=== PATIENT | female | born 1965 | race Caucasian/White ===

== ENCOUNTER → 2021-10-29 | Outpatient (CLI) | payer OTHER ==
[2021-10-29 18:17] LABS: African American GFR (CKD) 105.4 (60.0-200.0); Albumin 3.7 g/dL (3.8-4.9); Albumin/Globulin Ratio 1.23 (1.60-3.17); Anion Gap 10.6 mmol/L (10.00-18.00); BUN/Creat Ratio 18.19 Ratio (12.00-20.00); Blood Urea Nitrogen 13.5 mg/dL (9.0-27.0); Calcium 8.7 mg/dL (8.7-10.3); Carbon Dioxide 23.3 mmol/L (20.0-27.5); Non-African American GFR(CKD) 90.9 (60.0-200.0); Potassium 3.8 mmol/L (3.5-5.5); Total Bilirubin 0.8 mg/dL (0.30-1.20); Total Protein 6.7 g/dL (6.2-8.2)
[2021-10-29 18:33] LABS: Basophils # (A) 0.06 X 10*3/uL (0.00-0.10); Basophils % (A) 0.7 %; Eosinophils # (A) 0.18 X 10*3/uL (0.04-0.35); Eosinophils % (A) 2.1 %; HCT 48.9 % (37.2-46.3); HGB 15.1 g/dL (12.0-15.0); Immature Grans, Automated 0.2 %; Lymphocytes # (A) 1.84 X 10*3/uL (0.90-5.00); Lymphocytes % (A) 21.9 %; MCH 29.6 pg (27.0-32.0); MCHC 30.9 g/dL (32.0-37.0); MCV 95.9 fL (80.0-97.0); Mean Platelet Volume 12.9 fL (9.5-12.2); Monocytes # (A) 0.46 X 10*3/uL (0.20-1.00); Monocytes % (A) 5.5 %; NRBC Per 100 WBC 0 /100 WBCS (0.0-0.0); Neutrophils # (A) 5.83 X 10*3/uL (1.80-7.70); Neutrophils % (A) 69.6 %; Platelet Count 134 X 10*3/uL (140-440); RDW 15.7 % (11.5-14.5); WBC 8.39 X 10*3/uL (4.50-10.00)
[2021-10-29 21:07] LABS: Appearance,Urine Clear (Clear); Bilirubin,Urine Negative (Negative); Blood,Urine Negative (Negative); Color,Urine Yellow (Yellow); Ketones,Urine Negative (Negative); Nitrite,Urine Negative (Negative); PH, Urine 7.5 (5.0-8.0); Specific Gravity,Urine 1.007 (1.001-1.030); Urobilinogen,Urine 0.2 (0.2,1.0)
== END | disposition home or self-care (01) ==
LOC: LABPAT 10:56
PROVIDERS: ATTEND Urology
DX: Z01.812 Encounter for preprocedural laboratory examination (principal)
CPT/HCPCS: 80053; 81003; 85025; 87086

== ENCOUNTER 2021-11-05 06:36 | Observation (INO) | payer OTHER ==
[2021-11-03 18:12] VITALS: BMI 42.9
[~2021-11-05 06:36] MED LIST: DEXAMETHASONE SOD PHOSPHATE 4 MG/ML 1 ML VIAL IV ONE; GENTAMICIN 120 MG in SODIUM CHLORIDE 0.9% 100 ML IVPB PRN; MIDAZOLAM 2 MG/2 ML VIAL IV PRN; ONDANSETRON 4 MG/2 ML VIAL IVP ONE; Pre Op ABX Message 1 EACH MISC MISCELLANE ONE
[2021-11-05] MEDS ORDERED: HYDROmorphone 0.5 MG/0.5 ML SYRINGE IVP PRN (07:00)
--- NOTE | 2021-11-05 07:09 | P.GSHP ---
History of Present Illness H&P Date: 11/04/21 56 yo female with documented murray on p/e, uds. Her lpp are > 100cm but her valsalva pressures are very high and would overcome a tot therefore she iwll get a pvs with lynx. The alternatives have been discussed. The risks including infection, bleeding, pain , dyspareunia, mesh erosion and infection have discussed understood and accepted. - Constitutional Constitutional: Denies chills, Denies fever - EENT Eyes: denies blurred vision, denies pain Ears, nose, mouth and throat: Denies headache, Denies sore throat - Cardiovascular Cardiovascular: Denies chest pain, Denies shortness of breath - Respiratory Respiratory: Denies cough, Denies 7 - Gastrointestinal Gastrointestinal: Denies abdominal pain, Denies diarrhea, Denies nausea, Denies vomiting - Genitourinary (Female) Genitourinary: Denies dysuria, Denies hematuria - Genitourinary (Male) Genitourinary: Denies dysuria, Denies hematuria - Musculoskeletal Musculoskeletal: Denies myalgias - Integumentary Integumentary: Denies pruritus, Denies rash - Neurological Neurological: Denies numbness, Denies weakness - Psychiatric Psychiatric: Denies anxiety, Denies depression - Endocrine Endocrine: Denies fatigue, Denies weight change Past Medical History Past Medical History: Cancer, COPD, Deep Vein Thrombosis (DVT), Hyperlipidemia, Hypertension, Osteoarthritis (OA), Sleep Apnea/CPAP/BIPAP, Vascular Disorder Additional Past Medical History / Comment(s): EMPHYSEMA, C-PAP MACHINE, PAST HX IBS/COLITIS., DDD WITH HERNIATED & BULDGING DISCS, HIP AND BACK PAIN, SKIN CANCER., BORDERLINE DIABETES, PT STATES LOW PLATELETS., STRESS INCONTINENCE., LONE PINE RIGHT EAR., HX DVT RIGHT LEG., STENT LEFT LEG. History of Any Multi-Drug Resistant Organisms: None Reported Past Surgical History: Section, Heart Catheterization, Tubal Ligation Additional Past Surgical History / Comment(s): HEMORRHOIDS, TOENAILSURGERY, SKIN CANCER, STENT LEFT LEG BEHIND KNEE , LAPARSCOPIC SURGERY, PLATE LEFT WRIST, RIGHT EAR SURGERY . Past Anesthesia/Blood Transfusion Reactions: No Reported Reaction Additional Past Anesthesia/Blood Transfusion Reaction / Comment(s): MOM HAD DIFFICULTY WAKING POST-OP Past Psychological History: Anxiety, Depression Smoking Status: Current every day smoker Past Alcohol Use History: Rare Additional Past Alcohol Use History / Comment(s): SMOKES 1/2- 1 PPD, STARTED SMOKING AGE 15. Past Drug Use History: None Reported - Past Family History Father Family Medical History: Deep Vein Thrombosis (DVT) Medications and Allergies Home Medications Medication Instructions Recorded Confirmed Type Albuterol Inhaler [Ventolin Hfa 1 puff INHALATION DIRECTED PRN 11/03/21 11/03/21 History Inhaler] Aspirin [Adult Low Dose Aspirin EC] 81 mg PO DAILY 11/03/21 11/03/21 History Atorvastatin [Lipitor] 40 mg PO DAILY 11/03/21 11/03/21 History Cyclobenzaprine [Flexeril] 10 mg PO HS PRN 11/03/21 11/03/21 History DULoxetine HCL [Cymbalta] 60 mg PO DAILY 11/03/21 11/03/21 History Pramipexole [Mirapex] 0.125 mg PO TID 11/03/21 11/03/21 History Pregabalin [Lyrica] 50 mg PO TID 11/03/21 11/03/21 History Tiotropium Br/Olodaterol HCl 2 spray INHALATION DAILY 11/03/21 11/03/21 History [Stiolto Respimat Inhal [place]] hydroCHLOROthiazide 25 mg PO DAILY 11/03/21 11/03/21 History lisinopriL 2.5 mg PO DAILY 11/03/21 11/03/21 History metFORMIN HCL 500 mg PO BID 11/03/21 11/03/21 History Allergies Allergy/AdvReac Type Severity Reaction Status Date / Time Penicillins Allergy Severe HIVES, Verified 11/03/21 17:53 SWELLING WITH TOUCHING PILL bee venom protein (honey bee) Allergy Unknown HIVES, Verified 11/03/21 17:18 ITCHING SWELLING dicyclomine [From Bentyl] Allergy Unknown FACE Verified 11/03/21 17:19 SWELLING, HOSPITALIZED. latex Allergy Unknown HIVES, Verified 11/03/21 17:19 SWELLING bacitracin Allergy SKIN Verified 11/03/21 17:19 PE[address] AW[address] lidocaine Allergy COUGH, Verified 11/03/21 17:18 RASH, POOR HEALING AFTER SURGERY Surgical - Exam - General well developed, well nourished, no distress - Eyes PERRL - ENT no hearing loss - Neck no masses - Respiratory normal expansion, normal respiratory effort - Cardiovascular Rhythm: regular - Abdomen Abdomen: soft, non tender - Genitourinary mobile urethra, murray, grade 2 rectocele - Integumentary no rash, no growths - Neurologic normal coordination, normal sensation - Musculoskeletal normal gait, normal posture - Psychiatric oriented to time, oriented to person, oriented to place, speech is normal, memory intact Assessment and Plan Assessment: Impression: MURRAY Plan; PVS with cystoscopy
[2021-11-05 07:20] LABS: Glucose,Whole Blood 107 mg/dL (75-99)
[2021-11-05] MEDS ORDERED: LACTATED RINGERS 1,000 ML IV ONE (07:21)
[2021-11-05] MEDS ORDERED: PROPOFOL 10 MG/ML 20 ML VIAL IV ONE (07:29)
[2021-11-05] MEDS ORDERED: GLYCOPYRROLATE 0.2 MG/ML 2 ML VIAL ONE (07:29)
[2021-11-05] MEDS ORDERED: ALBUTEROL HFA INHALER INHALATION ONE (07:29)
[2021-11-05] MEDS ORDERED: SUCCINYLCHOLINE CHLORIDE VIAL 200 MG/10 ML VIAL IV ONE (07:29)
[2021-11-05] MEDS ORDERED: ROCURONIUM 10 MG/ML (5 ML VIAL) IV ONE (07:29)
[2021-11-05] MEDS ORDERED: fentaNYL (PF) 50 MCG/ML 2 ML AMP ONE (07:29)
[2021-11-05] MEDS ORDERED: MIDAZOLAM 2 MG/2 ML VIAL ONE (07:29)
[2021-11-05] MEDS ORDERED: NEOSTIGMINE 1 MG/ML 10 ML VIAL ONE (07:29)
[2021-11-05] MEDS ORDERED: HYDROmorphone (PF) 1 MG/ML ONE (07:29)
[2021-11-05] MEDS ORDERED: VASOPRESSIN 20 UNIT/ML 1 ML VIAL SQ ONE (08:06)
[2021-11-05] MEDS ORDERED: ALBUTEROL HFA INHALER INHALATION PRN (08:34)
[2021-11-05] MEDS ORDERED: HYDROcodone/APAP 5-325MG 1 EACH TAB PO PRN (08:37)
[2021-11-05] MEDS ORDERED: ONDANSETRON 4 MG/2 ML VIAL IVP PRN (08:37)
--- NOTE | 2021-11-05 08:42 | P.OP ---
Date of Procedure: 11/05/21 Preoperative Diagnosis: Stress urinary incontinence Postoperative Diagnosis: Same Procedure(s) Performed: Pubovaginal sling (Lynx), cystoscopy Anesthesia: HEIUA Surgeon: Vito Partida Estimated Blood Loss (ml): 50 Pathology: none sent Condition: stable Disposition: PACU Indications for Procedure: The patient is 56. She has documented stress urinary incontinence on physical examination and urodynamics. Although her leak point pressures are greater than 100 due to her morbid obesity and the extreme amount of intra-abdominal pressure cause with Valsalva he would overwhelm a trans-obturator tape. She comes for a pubovaginal sling. The risks and complications of an outlined including infection pain injury to adjacent organs dyspareunia mesh erosion among others. Description of Procedure: The patient is brought to the operating suite. She is given a general anesthetic on the operating table. She's placed in lithotomy position with a sterile abdominal vaginal prep. Benavides catheters introduced sterilely. The labia are sewn laterally with 2-0 silk. A vaginal speculum was placed she does have a small rectocele which we discussed and chose not to fix. The anterior vaginal doses elevated off the submucosa with a mixture of 20 g of Pitressin and 200 mL of saline. I and suburethral incision is made. I dissect lateral the bladder neck bilaterally with a 15 blade as well as Metzenbaum scissors. I then make counter incisions suprapubically at the corners of the pubis. I then pass the sLing introducer through these incisions retropubically into the vaginal space bilaterally. I removed the Benaivdes and passed the cystoscope to inspect the bladder. There is no evidence of injury of the bladder and there are no abnormalities in the bladder. I reintroduced the Benavides catheter. I attached the Lynx graft to the introducers and pull it back suprapubically. The graft lay at the bladder neck nicely without tension. I removed the redundant sheathing and cut the extra graft at the suprapubic incisions. I closed the vaginal space with 2-0 Vicryl running. I closed the suprapubic incisions with 4-0 Vicryl. A vaginal packing is placed. The patient is awakened and returned recovery room in good condition. He tolerated the procedure well. Blood loss is about 50 mL. She'll be kept in the hospital overnight.
[2021-11-05 09:27] LABS: Glucose,Whole Blood 136 mg/dL (75-99)
[2021-11-05] MEDS: LACTATED RINGERS 1,000 ML IV SCH (10:30)
[2021-11-05] MEDS: metFORMIN 500 MG TAB PO SCH ×2 (10:44→21:40)
[2021-11-05] MEDS: DULoxetine HCL 60 MG CAPSULE.DR PO SCH (10:44)
[2021-11-05] MEDS: ATORVASTATIN 40 MG TAB PO SCH (10:44)
[2021-11-05 10:51] LABS: Glucose,Whole Blood 149 mg/dL (75-99)
[2021-11-05] MEDS: hydroCHLOROthiazide 25 MG TAB PO SCH (11:19)
[2021-11-05] MEDS: PREGABALIN 50 MG CAP PO SCH ×3 (11:20→21:41)
[2021-11-05] MEDS: SODIUM CHLORIDE 0.45% 1,000 ML IV SCH ×2 (11:55→23:32)
[2021-11-05] MEDS: IPRATROPIUM 0.5 MG/2.5 ML NEBU INHALATION SCH ×3 (15:15→21:16)
[2021-11-05] MEDS: FORMOTEROL FUMARATE 20 MCG/2 ML NEBU INHALATION SCH ×2 (15:15→21:16)
[2021-11-05] MEDS: KETOROLAC 15 MG/ML 1 ML VIAL IVP PRN ×2 (15:45→23:40)
[2021-11-05 21:43] LABS: Glucose,Whole Blood 178 mg/dL (75-99)
[2021-11-05] MEDS ORDERED: SODIUM CHLORIDE 0.9% 500 ML 500 ML IV ONE (23:53)
[2021-11-06] MEDS: SODIUM CHLORIDE 0.45% 1,000 ML IV SCH (03:12)
[2021-11-06] MEDS: LACTATED RINGERS 1,000 ML IV SCH (03:25)
--- NOTE | 2021-11-06 07:16 | P.DS ---
Providers Date of admission: 11/06/21 00:53 Attending physician: Vito Partida Primary care physician: [facility] Hospital Course: The patient was admitted yesterday for a pubovaginal sling which she underwent successfully. She did well overnight other than coronary bolus of fluids. She feels well this morning. Her catheter and packing have been removed. If she voids adequately she'll be discharged home. Regular diet limited activity. She may shower no central activity. However Motrin for pain. Follow-up in the office in one week. Condition is good. Patient Condition at Discharge: Good Plan - Discharge Summary Discharge Rx Participant: Yes New Discharge Prescriptions: No Action Atorvastatin [Lipitor] 40 mg PO DAILY metFORMIN HCL 500 mg PO BID hydroCHLOROthiazide 25 mg PO DAILY Pramipexole [Mirapex] 0.125 mg PO TID lisinopriL 2.5 mg PO DAILY Aspirin [Adult Low Dose Aspirin EC] 81 mg PO DAILY Pregabalin [Lyrica] 50 mg PO TID Cyclobenzaprine [Flexeril] 10 mg PO HS PRN PRN Reason: Muscle Spasm DULoxetine HCL [Cymbalta] 60 mg PO DAILY Albuterol Inhaler [Ventolin Hfa Inhaler] 1 puff INHALATION DIRECTED PRN PRN Reason: Shortness Of Breath Tiotropium Br/Olodaterol HCl [Stiolto Respimat Inhal [place]] 2 spray INHALATION DAILY Discharge Medication List Albuterol Inhaler [Ventolin Hfa Inhaler] 1 puff INHALATION DIRECTED PRN 11/03/21 [History] Aspirin [Adult Low Dose Aspirin EC] 81 mg PO DAILY 11/03/21 [History] Atorvastatin [Lipitor] 40 mg PO DAILY 11/03/21 [History] Cyclobenzaprine [Flexeril] 10 mg PO HS PRN 11/03/21 [History] DULoxetine HCL [Cymbalta] 60 mg PO DAILY 11/03/21 [History] Pramipexole [Mirapex] 0.125 mg PO TID 11/03/21 [History] Pregabalin [Lyrica] 50 mg PO TID 11/03/21 [History] Tiotropium Br/Olodaterol HCl [Stiolto Respimat Inhal [place]] 2 spray INHALATION DAILY 11/03/21 [History] hydroCHLOROthiazide 25 mg PO DAILY 11/03/21 [History] lisinopriL 2.5 mg PO DAILY 11/03/21 [History] metFORMIN HCL 500 mg PO BID 11/03/21 [History] Follow up Appointment(s)/Referral(s): Vito Partida MD [STAFF PHYSICIAN] - 1 Week Discharge Disposition: HOME SELF-CARE
[2021-11-06 08:37] VITALS: BP 131/67; RESP 16; TEMP 97.7
[2021-11-06] MEDS: ATORVASTATIN 40 MG TAB PO SCH (08:45)
[2021-11-06] MEDS: PREGABALIN 50 MG CAP PO SCH (08:45)
[2021-11-06] MEDS: hydroCHLOROthiazide 25 MG TAB PO SCH (08:45)
[2021-11-06] MEDS: metFORMIN 500 MG TAB PO SCH (08:45)
[2021-11-06] MEDS: DULoxetine HCL 60 MG CAPSULE.DR PO SCH (08:45)
[2021-11-06] MEDS: IPRATROPIUM 0.5 MG/2.5 ML NEBU INHALATION SCH (09:01)
[2021-11-06] MEDS: FORMOTEROL FUMARATE 20 MCG/2 ML NEBU INHALATION SCH (09:01)
[2021-11-06 09:23] VITALS: PULSE 82
== END 2021-11-06 09:48 | disposition home or self-care (01) ==
LOC: OR 06:36 → 4FBP 08:57 → OR 11-06 00:53
PROVIDERS: ADMIT Urology; ATTEND Urology
DX: N39.3 Stress incontinence (female) (male) (principal); J44.9 Chronic obstructive pulmonary disease, unspecified; E78.5 Hyperlipidemia, unspecified; I10 Essential (primary) hypertension; M19.90 Unspecified osteoarthritis, unspecified site; G47.30 Sleep apnea, unspecified; Z86.718 Personal history of other venous thrombosis and embolism; J43.9 Emphysema, unspecified; K58.9 Irritable bowel syndrome, unspecified; E66.01 Morbid (severe) obesity due to excess calories; Z68.42 Body mass index [BMI] 45.0-49.9, adult; M25.559 Pain in unspecified hip; M54.9 Dorsalgia, unspecified; Z85.828 Personal history of other malignant neoplasm of skin; R73.03 Prediabetes; H91.90 Unspecified hearing loss, unspecified ear; Z98.891 History of uterine scar from previous surgery; Z98.51 Tubal ligation status; Z98.890 Other specified postprocedural states; F41.9 Anxiety disorder, unspecified; F32.A Depression, unspecified; F17.210 Nicotine dependence, cigarettes, uncomplicated; Z79.84 Long term (current) use of oral hypoglycemic drugs; Z79.82 Long term (current) use of aspirin; Z79.899 Other long term (current) drug therapy; Z88.0 Allergy status to penicillin; Z88.8 Allergy status to other drugs, medicaments and biological substances; Z88.4 Allergy status to anesthetic agent; Z88.3 Allergy status to other anti-infective agents; Z91.030 Bee allergy status; Z91.040 Latex allergy status
CPT/HCPCS: 94640 ×4; 81025; 57288; G0378; J2250; J0330; J1100; J2710; J2405; J3010; J1580; J1170; J1885; J2704

== ENCOUNTER → 2022-12-28 | Outpatient (CLI) | payer OTHER, MEDICARE ==
[2022-12-29 00:28] LABS: Aspergillus fumagatus IgE <0.10 kU/L; Birch IgE <0.10 kU/L; Cat Epith & Dander IgE <0.10 kU/L; Dermato. farinae IgE <0.10 kU/L; Dog Dander IgE <0.10 kU/L; Elm IgE <0.10 kU/L; Oak IgE <0.10 kU/L; Ragweed,Common IgE <0.10 kU/L
[2022-12-29 13:42] LABS: Bermuda Grass IgE <0.10 kU/L (<0.10); Pecan IgE <0.10 kU/L (<0.10); Pecan IgE Class CLASS 0
[2022-12-29 13:43] LABS: Alt. alternata IgE Class CLASS 0; Alternaria alternata IgE <0.10 kU/L (<0.10); Clad herbarum IgE <0.10 kU/L (<0.10); Clad herbarum IgE Class CLASS 0; Meadow Fescue IgE <0.10 kU/L (<0.10); Meadow Fescue IgE Class CLASS 0; Meadow Grs (KY blue) IgE <0.10 kU/L (<0.10); Meadow Grs (KY blue) IgE Class CLASS 0; Penicillium notatum IgE Class CLASS 0; Timothy Grass IgE <0.10 kU/L (<0.10); Timothy Grass IgE Class CLASS 0
[2022-12-29 13:44] LABS: Cottonwood IgE <0.10 kU/L (<0.10); Sycamore(Mpl.Lf) IgE <0.10 kU/L (<0.10); Sycamore(Mpl.Lf) IgE Class CLASS 0; Willow Tree IgE <0.10 kU/L (<0.10); Willow Tree IgE Class CLASS 0
[2022-12-29 13:45] LABS: Beech IgE <0.10 kU/L (<0.10); Beech IgE Class CLASS 0; English Plantain IgE Class CLASS 0; Goldenrod IgE <0.10 kU/L (<0.10); Goldenrod IgE Class CLASS 0; Lamb's Quarter IgE <0.10 kU/L (<0.10); Lamb's Quarter IgE Class CLASS 0; Ragweed, Giant IgE <0.10 kU/L (<0.10); Ragweed, Giant IgE Class CLASS 0; Sheep Sorrel IgE <0.10 kU/L (<0.10); Sheep Sorrel IgE Class CLASS 0
== END | disposition home or self-care (01) ==
LOC: LABWHC1 12:29
PROVIDERS: ATTEND Internal Medicine
DX: J31.0 Chronic rhinitis (principal)
CPT/HCPCS: 36415; 86003